=== PATIENT | male | born 1935 | race Caucasian/White ===

== ENCOUNTER 2020-03-09 14:41 | Outpatient (CLI) | payer MEDICARE, OTHER ==
--- NOTE | 2020-03-09 15:24 | RAD ---
RIGHT TIBIA/FIBULA TWO VIEWS: History: Pain. Comparison: None. FINDINGS: No fracture, cortical irregularity, or periosteal reaction. There is distal soft tissue swelling. IMPRESSION: Distal soft tissue swelling, without fracture. POS: PPP
--- NOTE | 2020-03-09 15:25 | RAD ---
RIGHT ANKLE THREE VIEWS: History: Pain. Patient fell one week ago. FINDINGS: There is soft tissue swelling. Ankle mortise appears to be intact. Preserved joint spaces. No fractur e. IMPRESSION: Soft tissue swelling, without fracture. POS: PPP
== END 2020-03-09 14:42 | disposition home or self-care (01) ==
LOC: BICRAD 14:41
PROVIDERS: ATTEND Student in an Organized Health Care Education/Training Program
DX: M79.661 Pain in right lower leg (principal); M79.89 Other specified soft tissue disorders